=== PATIENT | female | born 1970 | race Caucasian/White ===

== ENCOUNTER → 2016-08-28 16:51 | Outpatient (CLI) | payer BC | END | disposition home or self-care (01) | LOC: D.MAMMO 15:15 | DX: Z12.31 Encounter for screening mammogram for malignant neoplasm of breast (principal) ==

== ENCOUNTER 2016-11-05 06:18 | Inpatient (IN) | payer BC ==
[2016-11-03 11:47] LABS: BASOPHILS 0.2 % (0-2); EOSINOPHILS 1.4 % (0-7); HEMATOCRIT 39.5 % (36.0-48.0); HEMOGLOBIN 13.4 g/dL (12-16); IMMATURE GRANULOCYTES 0.3 % (0-5); LYMPHOCYTES 20.3 % (15-50); MCH 30.5 pg (26.0-34.0); MCHC 33.9 g/dL (31.0-37.0); MCV 89.8 fL (80.0-100.0); MEAN PLATELET VOLUME 8.7 fL (7.4-10.4); MONOCYTES 11.5 % (2-11); NEUTROPHILS 66.3 % (40-80); PLATELET COUNT 234 10x3/uL (130-400); RDW 12.7 % (11.5-14.5); WBC 6.3 10x3/uL (4.8-10.8)
[2016-11-03 11:56] LABS: APTT 24.7 SECONDS (22.8-39.4); INR 0.91 (0.85-1.17); PROTIME 12.1 SECONDS (11.6-15.0)
[2016-11-03 12:17] LABS: CALC OSMOLALITY 282 mosm/kg (275-300); CALCIUM 9.3 mg/dL (8.5-10.1); CARBON DIOXIDE 28.2 mmol/L (21.0-32.0); CHLORIDE - SERUM 104 mmol/L (98-107); CREATININE - SERUM 0.7 mg/dL (0.6-1.3); GLUCOSE 88 mg/dL (74-106); SODIUM 142 mmol/L (136-145); UREA NITROGEN 16 mg/dL (7-18); eGFR NON AFRICAN AMERICAN > 90 mL/min (90-120)
[~2016-11-05] VITALS: Ht 162.6 cm; Wt 72.7 kg
[2016-11-05] VITALS (15 sets, daily range): BP systolic 89–116; BP diastolic 42–65; Ht 162.6 cm; Wt 72.7 kg
[2016-11-05 05:48] LABS: HCG URINE NEGATIVE (NEGATIVE)
[~2016-11-05 06:18] MED LIST: SYNTHROID125 MCG PO
--- NOTE | 2016-11-05 10:00 | NUR ---
PT RECEIVED FROM RECOVERY ROOM. SHE IS S/P TOTAL ABDOMINAL HYSTERECTOMY BY DR GUARDADO. PT IS DROWZT BUT EAILY AWAKENS. J SHE IS PRESENTLY ON O2 AT 3 LITERS BECAUSE SHE HAS BEEN PRETTY DROWSY FROM ANESTHESIA AND PAIN MEDS. HER O2 IS RUNNING 96% TO 98%. NO DISTRESS NOTED. GEN- ASLEEP, BUT EASILY AWAKENS. FAMILY AT BEDSIDE. VSS. LUNGS- CLEAR. HEART- RRR, ABD- SOFT, WITH TENDERNESS. LOW TRASVERSE INCISION WITH STERI STRIPS INTACT. INCISION IS CLEAN AND DRY. PERINEAL- NO BLEEDING NOTED. EXT- SCD'S INTACT. FEET WARM AND DRY AND PULSES PALPABLE. BED IS LOW, SIDE RAILS UP X 2 AND CALL LIGHT IN REACH.
--- NOTE | 2016-11-05 11:54 | NUR ---
PT IS NOT A SMOKER SO NICOTINE PATCH WAS D'CD. TWO TORADOL ORDERS WERE MADE. ONE ORDER D'CD.
--- NOTE | 2016-11-05 12:05 | NUR ---
PT IS RESTING. FAMILY AT BEDSIDE. INCISION IS CLEAN AND DRY. NO BLEEDING NOTED. RYAN INTACT WITH 100 CC LIGHT GREEN URINE. IV PATENT LEFT HAND WITH D5LR INFUSING. DEMEROL MIXING PAN TENDER INTACT. SCD'S INTACT. BED IS LOW, SIDE RAILS UP X 2 AND CALL LIGHT IN REACH.
--- NOTE | 2016-11-05 12:32 | NUR ---
PT TOOK OF FEW SIPS OF HER CLEAR LIQUID DIET. SHE OFFERS NO COMPLAINTS. FAMILY AT BEDSIDE.
--- NOTE | 2016-11-05 12:37 | NUR ---
HER INCISION IS CLEAN AND DRY ANDHER RYAN OUTPUT IS 200 CC OF LIGHT BLUE GREEN URINE.
--- NOTE | 2016-11-05 17:00 | NUR ---
PADS CHANGED. PT ROLLED TO HER SIDE. SHE HAD NO BLEEDING NOTED. HER BOTTOM AND PERINEAL AREA WERE CLEANED WITH FOAM LIBRARY SPECIALIST. BACK RUBBED WITH MOISTURIZER. NEW PADS APPLIED AND GOWN CHANGED.
--- NOTE | 2016-11-05 17:59 | NUR ---
PT STILL HAVING PAIN OF ABOUT A 6/10. GAVE HER IV TORADOL.
--- NOTE | 2016-11-05 18:02 | NUR ---
IV INPUT 474. CONSULTING SENIOR PRACTICE DIRECTOR 3.50 AND URINE OUTPUT- 900 CC DARK GOLD URINE.
--- NOTE | 2016-11-05 19:45 | NUR ---
PM ROUNDS MADE, PT IS VISITING WITH S/O AND SISTER, INFORMED PT THAT I WILL BE BACK SHORTLY TO DO ASSESSMENT, PT VERBALIZES UNDERSTANDING, DENIES NEEDS AT THIS TIME
--- NOTE | 2016-11-05 20:00 | NUR ---
ASSESSMENT PER FLOW SHEET, VS OBTAINED, IV IN LEFT HAND INTACT WITH NO REDNESS OR EDEMA INFUSING VIA PUMP D5LR AT 125 ML/HR, DEMEROL SHED WORKERS SUPERVISOR TO DELIVER 10MG/10MINS WITH A 200 MG/4 HOUR LOCKOUT, PT RATES INC PAIN 10/04, PT INST ON AND VERBALIZES UNDERSTANDING OF SHED WORKERS SUPERVISOR, PT PUSHES BUTTON AT THIS TIME, [employer] WITH STERI STRIPS CDI WITH NO DRAINAGE NOTED, NO VAG BLEEDING NOTED, FRESH ICE PACK TO ABD, RYAN CATH INTACT, SECURED TO LEG WITH TAPE, DRAINING LIGHT GREEN URINE, EMPTIED 600 MLS FROM RYAN, PT DENIES FLATUS, PT INST ON AND DEMONSTRATED INCENTIVE SPIROMETER, PT PROVIDED SMALL SPLINT PILLOW, SCD'S ON AND WORKING PROPERLY
--- NOTE | 2016-11-05 20:15 | NUR ---
NEW VIAL OF DEMEROL TO MALT LIQUORS SALES REPRESENTATIVE PER MD ORDERS, SEE EMAR, PT DENIES FURTHER NEEDS, BED IN LOW POSITION, SIDE RAILS X 2, CALL LIGHT IN REACH, TRASH REMOVED
--- NOTE | 2016-11-05 21:09 | NUR ---
PT RESTING WITH EYES CLOSED, AROUSES TO SOFT VERBAL STIMULATION, ADM PEPCID PO PER MD ORDERS, SEE EMAR, PT DENIES PAIN LONG SHE DOESN'T MOVE, DENIES NEEDS AT THIS TIME, BEDDING PROVIDED TO S/O
--- NOTE | 2016-11-05 21:16 | NUR ---
IV BEEPING, NEW BAG OF D5LR HUNG IV INFUSING VIA PUMP AT 125 ML/HR
--- NOTE | 2016-11-05 23:15 | NUR ---
PT RESTING WITH EYES CLOSED, AROUSES TO SOFT VERBAL STIMULATION, VS OBTAINED, RYAN CATH EMPTIED, PT TCDB, USED I.S. WITH GOOD EFFORT, PT TO RIGHT SIDE WITH PILLOW UNDER ABD AND BEHIND BACK FOR COMFORT AND SUPPORT, FRESH ICE PACK TO ABD, SCD'S CONTINUE ON AND WORKING PROPERLY, BED IN LOW POSITION, SIDE RAILS X 2, CALL LIGHT IN REACH, RECLINER CHANGED OUT FOR S/O
--- NOTE | 2016-11-06 01:05 | NUR ---
PT AWAKE, ADM TORADOL SIVP PER MD ORDERS, SEE EMAR, PT REPOSITIONED TO BACK, DENIES NEEDS AT THIS TIME, S/O AT BEDSIDE
--- NOTE | 2016-11-06 03:30 | NUR ---
PT RESTING WITH EYES CLOSED, RESP QUIET, NO DISTRESS NOTED, LEFT UNDISTURBED AT THIS TIME, S/O ASLEEP IN RECLINER
[2016-11-06 04:35] VITALS: BP 95/47
--- NOTE | 2016-11-06 04:35 | NUR ---
PT AWAKE, VS OBTAINED, I&O'S COLLECTED, NO VAG BLEEDING NOTED, FRESH ICE PACK TO ABD, PT REQUESTED AND SERVED FRESH H20, PT PUSHES CAFE ASSISTANT BUTTON AT THIS TIME FOR PAIN 5/10, PT DENIES FURTHER NEEDS, S/O ASLEEP IN RECLINER
--- NOTE | 2016-11-06 05:00 | NUR ---
NEW BAG OF D5LR HUNG VIA PUMP INFUSING AT 125 ML/HR PER MD ORDERS, SEE EMAR, SCD'S CONTINUE ON AND WORKING PROPERLY, BED IN LOW POSITION, SIDE RAILS X 2, CALL LIGHT IN REACH
[2016-11-06 05:36] LABS: HEMATOCRIT 31.5 % (36.0-48.0); HEMOGLOBIN 10.6 g/dL (12-16); MCH 30.2 pg (26.0-34.0); MCHC 33.7 g/dL (31.0-37.0); MCV 89.7 fL (80.0-100.0); RBC 3.51 10x6/uL (4.00-5.40); WBC 12.2 10x3/uL (4.8-10.8)
--- NOTE | 2016-11-06 07:01 | NUR ---
SHIFT REPORT TO CB JESSICA RN
[2016-11-06 07:15] VITALS: BP 86/46
--- NOTE | 2016-11-06 07:15 | NUR ---
PT IS LYING IN BED. SHE OFFERS NO COMPLAINTS. GEN- AWAKE AND ALERT. LUNGS- CLEAR. HEART- RRR. ABD- SOFT, WITH TENDERNESS. LOW TRANSVERSE INCISION WITH STERI STRIPS. NO VAGINAL BLEEDING. RYAN INTACT WITH GOOD URINE OUTPUT. SALINE LOCK NOTED LEFT HAND AND IS PATENT. SCD'S INTACT LE. BED IS LOW, SIDE RAILS UP X 2 AND CALL LIGHT IN REACH. AT BEDSIDE.
--- NOTE | 2016-11-06 08:00 | NUR ---
IV WAS SALINE LOCKED. ALCOHOL CAP PLACED ON PORT SITE. IV PATENT LEFT HAND
--- NOTE | 2016-11-06 08:15 | NUR ---
PT C/O ABDOMINAL PAIN. STATES HER PAIN IS A 7/. DEMEROL 50 MG GIVEN PO.
--- NOTE | 2016-11-06 10:00 | NUR ---
RYAN CATH REMOVED. BALOON DEFLATED AND REMOVED. 400 CC LIGHT GREEN URINE.
--- NOTE | 2016-11-06 10:33 | NUR ---
PT IS UP TO BATHROOM TO VOID. CRIED WITH PAIN GETTING UP, WILL GIVE HER TORADOL IV NOW. PT IS BACK TO BED.
--- NOTE | 2016-11-06 11:21 | NUR ---
PT C/O PAIN BEING A 11/03. SHE REQUEST PAIN MED. GIVEN DEMEROL 50 MG PO
--- NOTE | 2016-11-06 12:15 | NUR ---
PT VOIDED 300 CC LIGHT GREEN URINE. SHE IS NOW EATING HER LUNCH.
--- NOTE | 2016-11-06 13:25 | NUR ---
PT UP TO THE BATHROOM TO VOID. VOIDED 200 CC
--- NOTE | 2016-11-06 14:30 | NUR ---
PT UP TO BATHROOM. VOIDED 300 CC LIGHT GREEN URINE. PT BACK TO BED. BED IS LOW.SIDE RAILS UP X 2 AND CALL LIGHT IN REACH.
--- NOTE | 2016-11-06 15:31 | NUR ---
PT IS SITTING UP IN BED. OFFERS NO COMPLAINTS. IS GETTING UP TO GO TO BATHROOM AGAIN. AT BEDSIDE.
--- NOTE | 2016-11-06 17:27 | NUR ---
PT REQUESTED PAIN MED. DEMEROL 50 MG GIVEN PO. HER DINNER WAS SERVED. HER BED IS LOW, SIDE RAILS UP X 2 AND CALL LIGHT IN REACH. SALINE LOCKL HAND IS PATENT.
--- NOTE | 2016-11-06 18:44 | NUR ---
PT UP WALKING WITH IN HALLWAY. WALKED ABOUT 100 FT. STATES HER PAIN IS A 9 1/2.
[2016-11-06 19:30] VITALS: BP 110/56
--- NOTE | 2016-11-06 19:30 | NUR ---
PT RECEIVED SITTING UP IN BED WATCHING TV AT THIS TIME AAOX3. FAMILY AT BEDSIDE. PT RATES PAIN 9/10. VSS. S/L NOTED TO LEFT HAND. DRESSING CDI. HEART RRR. LUNG SOUNDS CLEAR BILATERALLY. BOWEL SOUNDS ACTIVE X4 QUADRENTS. ABDOMEN SOFT WITH TENDERNESS. LOW TRANSVERSE INCISION NOTED TO ABDOMEN WITH STERI STRIPS. NO REDNESS, SWELLING, OR PURULENT DRAINAGE NOTED. PEDAL PULSES EQUAL BILATERALLY. PT HAS BEEN UP AMBULATING PERIODICALLY THROUGHOUT THE DAY. PT DENIES NEEDS AT THIS TIME. BED LOW. PHONE AND CALL LIGHT IN REACH. SRX2.
--- NOTE | 2016-11-06 20:30 | NUR ---
ADMINISTERED PEPCID PO AND DEMEROL PO PER ORDERS AT THIS TIME FOR PAIN PT RATES 01/04. PT DENIES OTHER NEEDS. BED LOW. PHONE AND CALL LIGHT IN REACH. SRX2.
--- NOTE | 2016-11-06 21:50 | NUR ---
PT SITTING UP IN BED WATCHING TV AT THIS TIME. DENIES NEEDS. BED LOW. PHONE AND CALL LIGHT IN REACH. SRX2.
[2016-11-06 23:32] VITALS: BP 99/50
--- NOTE | 2016-11-06 23:32 | NUR ---
PT SITTING UP ON SIDE OF BED BRUSHING HAIR AT THIS TIME. REQUESTS MEDICATION FOR PAIN 12/04. ADMINISTERED DEMEROL PO PER ORDERS. VSS. PT DENIES OTHER NEEDS. BED LOW. PHONE AND CALL LIGHT IN REACH. SRX2.
--- NOTE | 2016-11-07 01:20 | NUR ---
PT LYING AWAKE IN BED RESTING QUIETLY AT THIS TIME. DENIES NEEDS. BED LOW. PHONE AND CALL LIGHT IN REACH. SRX2.
[2016-11-07 03:36] VITALS: BP 93/52
--- NOTE | 2016-11-07 03:36 | NUR ---
PT LYING IN BED RESTING QUIETLY WITH EYES CLOSED. AROUSED EASILY. REQUESTS MEDICATION FOR PAIN PT RATES 11/03. ADMINISTERED DEMEROL PO PER ORDERS. PT REQUESTS ICE WATER. DENIES OTHER NEEDS. BED LOW. PHONE AND CALL LIGHT IN REACH. SRX2.
--- NOTE | 2016-11-07 03:58 | NUR ---
PT UP AMBULATING HALLWAY AT THIS TIME WITH FAMILY MEMBER. DENIES NEEDS.
--- NOTE | 2016-11-07 05:26 | NUR ---
PT RESTING QUIETLY AT THIS TIME. DENIES NEEDS. BED LOW. PHONE AND CALL LIGHT IN REACH. SRX2.
[2016-11-07 07:15] VITALS: BP 104/49
--- NOTE | 2016-11-07 07:15 | NUR ---
PT IS RECEIVED SITTING UP IN BED. AT BEDSIDE. PT STATES HER PAIN IS A 7/10. REQUESTED PAIN MED. GEN- AWAKE AND ALERT. LUMGS- CLEAR. HEART-RRR. ABD- SOFT TENDER. LOW TRANSVERSE INCISION WITH STERI STRIPS. CLEAN, DRY AND INTACT. BS+. EXT- NO EDEMA NOTED. PT IS VOIDING WITHOUT DIFFICULTY. BED IS LOW, SIDE RAILS UP X 2 AND CALL LIGHT IN REACH.
--- NOTE | 2016-11-07 07:45 | NUR ---
SALINE LOCK D'CD. TIP INTACT.
--- NOTE | 2016-11-07 08:10 | NUR ---
PT IS UP AMBULATING IN HALLWAY WITH HER
[2016-11-07] MEDS ORDERED: MOTRIN600 MG PO (08:46)
[2016-11-07] MEDS ORDERED: MEPERIDINE HCL50 MG PO (08:46)
--- NOTE | 2016-11-07 08:59 | NUR ---
PT IS DISCHARGED HOME. INSTRUCTIONS DISCUSSED AND HANDOUTS GIVEN. FU APPTS AND PRESCRIPTIONS GIVEN. PT TAKEN TO VEHICLE BY WHEELCHAIR.
== END 2016-11-07 09:00 | disposition home or self-care (01) | DRG 743 ==
LOC: D.OPS 06:18 → D.PAN 07:30 → D.OPS 07:30 → D.WS 08:50 → D.OPS 09:17 → D.WS 11-07 09:00
PROVIDERS: Anesthesiology; ADMIT Obstetrics & Gynecology
PROC: 0UT70ZZ Resection of Bilateral Fallopian Tubes, Open Approach (ICD-10-PCS; 2016-11-05)
PROC: 0UT90ZZ Resection of Uterus, Open Approach (ICD-10-PCS; principal; 2016-11-05 07:30)
DX: N92.0 Excessive and frequent menstruation with regular cycle (principal)

== ENCOUNTER 2019-01-05 09:20 | Outpatient (CLI) | payer BC ==
[2016-11-05 12:10] VITALS: BMI 27.5
[~2019-01-05 09:20] MED LIST changes: +MEPERIDINE HCL50 MG PO; +MOTRIN600 MG PO
== END 2019-01-05 10:00 | disposition home or self-care (01) ==
LOC: D.MAMMO 09:20
PROVIDERS: ATTEND Family Medicine
DX: Z12.31 Encounter for screening mammogram for malignant neoplasm of breast (principal)